=== PATIENT | male | born 1935 | race Caucasian/White ===

== ENCOUNTER 2022-06-19 10:56 | Emergency (ER) | payer MEDICARE, OTHER ==
[2022-06-19 11:56] LABS: #Monocytes 0.7 10x3/uL (0.0-1.1); #Neutrophils 9.8 10x3/uL (1.5-8.4); %Basophils 0.3 % (0.0-2.0); %Eosinophils 0.4 % (0.0-6.0); %Monocytes 6.3 % (0.0-10.0); %Neutrophils 88.3 % (40.0-75.0); Hemoglobin 13.8 g/dL (13.5-17.5); Mean Corpuscular HGB CONC 35.1 g/dL (32.0-36.0); Mean Corpuscular Hemoglobin 32.9 pg (27.0-33.0); Mean Corpuscular Volume 93.8 fl (81.2-95.1); Mean Platelet Volume 9.4 fl (7.4-10.4); Platelet Count 166 10x3/uL (150-450); RBC Distribution Width 13.2 % (11.5-14.5); Red Blood Cell (RBC) Count 4.19 10x6/uL (4.32-5.72); White Blood Cell (WBC) Count 11.1 10x3/uL (3.5-10.5)
[2022-06-19] MEDS ORDERED: Morphine 4 MG/ML VIAL ONE ×2 (11:59→17:09)
[2022-06-19 12:19] LABS: ALT (SGPT) 21 U/L (8-55); AST (SGOT) 29 U/L (5-34); Albumin 3.4 g/dL (3.4-4.8); Alkaline Phosphatase 161 U/L (40-110); Anion Gap 17 mmol/L (10-20); BUN (Urea Nitrogen) 35 mg/dL (8.4-25.7); Bilirubin, Total 1.3 mg/dL (0.2-1.2); Calc. Creatinine Clearance 0 mL/min (70-130); Calcium 8.6 mg/dL (7.8-10.44); Carbon Dioxide 18 mmol/L (23-31); Chloride 104 mmol/L (98-107); Estimated GFR 47; Glucose 107 mg/dL (83-110); Protein, Total 6.4 g/dL (5.8-8.1); Sodium 135 mmol/L (136-145)
[2022-06-19 13:33] LABS: Bilirubin Neg (Negative); Blood, Urine 10 (Negative); Clarity Clear (Clear); Glucose, Urine (Dipstick) Normal (Negative); Ketone, Urine 5 mg/dL (Negative); Leukocyte Negative (Negative); Nitrite Negative (Negative); Protein, Urine (Dipstick) 30 mg/dl (Neg-Trace)
[2022-06-19 13:56] LABS: Bacteria/HPF Rare-Few HPF (None Seen); Epithelial Cast 0-3 LPF (None Seen); Mucous/LPF 1+ LPF (<2+); Squamous Epithelial 0-3 HPF (0-3); WBC/HPF 0-3 HPF (0-3)
== END 2022-06-19 20:30 ==
LOC: CSHERS 10:56
DX: M54.50 Low back pain, unspecified (principal); R53.1 Weakness
CPT/HCPCS: 36415; 72128; 72131; 80053; 81003; 81015; 85025; 93005; 96374; 96376; J2270

== ENCOUNTER 2022-07-10 13:13 | Inpatient (IN) | payer OTHER ==
[2022-07-10 15:17] LABS: PTT 29.9 sec (22.0-33.0)
[2022-07-10 15:18] LABS: ALT (SGPT) 16 U/L (8-55); AST (SGOT) 28 U/L (5-34); Albumin 3.4 g/dL (3.4-4.8); Alkaline Phosphatase 331 U/L (40-110); Anion Gap 17 mmol/L (10-20); BUN (Urea Nitrogen) 19 mg/dL (8.4-25.7); Bilirubin, Total 0.5 mg/dL (0.2-1.2); Calc. Creatinine Clearance 0 mL/min (70-130); Calcium 8.2 mg/dL (7.8-10.44); Carbon Dioxide 22 mmol/L (23-31); Chloride 102 mmol/L (98-107); Estimated GFR 62; Globulin 2.6 g/dL (2.4-3.5); Glucose 94 mg/dL (83-110); Potassium 3.5 mmol/L (3.5-5.1); Sodium 137 mmol/L (136-145)
[2022-07-10 15:29] LABS: #Eosinphils 0.1 10x3/uL (0.0-0.5); #Monocytes 0.5 10x3/uL (0.0-1.1); #Neutrophils 5.3 10x3/uL (1.5-8.4); %Basophils 0.4 % (0.0-2.0); %Eosinophils 1.6 % (0.0-6.0); %Lymphocytes 11.2 % (18.0-47.0); %Monocytes 7.7 % (0.0-10.0); %Neutrophils 78.7 % (40.0-75.0); Mean Corpuscular HGB CONC 34.4 g/dL (32.0-36.0); Mean Corpuscular Hemoglobin 32.4 pg (27.0-33.0); Mean Corpuscular Volume 94.2 fl (81.2-95.1); Mean Platelet Volume 8.7 fl (7.4-10.4); Platelet Count 244 10x3/uL (150-450); RBC Distribution Width 13.4 % (11.5-14.5); Red Blood Cell (RBC) Count 4.32 10x6/uL (4.32-5.72); White Blood Cell (WBC) Count 6.7 10x3/uL (3.5-10.5)
[2022-07-10] MEDS ORDERED: Guaifenesin DM 100-10/5 ML UDCUP PO PRN (18:46)
[2022-07-10] MEDS ORDERED: Acetaminophen 325 MG TAB PO PRN (18:46)
[2022-07-10] MEDS ORDERED: Ondansetron PF 4 MG/2 ML Vial IVP PRN (18:46)
[2022-07-10] MEDS ORDERED: Ondansetron ODT 4 MG TAB PO PRN (18:46)
[2022-07-10] MEDS ORDERED: Senokot S 8.6-50 MG TAB PO PRN (18:46)
[2022-07-10] MEDS ORDERED: Acetaminophen 650 MG Suppository PR PRN (18:46)
[2022-07-10] MEDS ORDERED: PHENYTOIN 30 MG PO SCH (21:00)
[2022-07-10] MEDS ORDERED: Phenytoin Extended Release 100 MG CAP PO SCH (21:00)
[2022-07-10] MEDS: Atorvastatin Calcium 40 MG TAB PO SCH (21:48)
[2022-07-10] MEDS: Famotidine 20 MG TAB PO SCH (21:49)
[2022-07-11 04:51] LABS: Anion Gap 11 mmol/L (10-20); BUN (Urea Nitrogen) 19 mg/dL (8.4-25.7); Calc. Creatinine Clearance 57 mL/min (70-130); Calcium 8.3 mg/dL (7.8-10.44); Carbon Dioxide 25 mmol/L (23-31); Chloride 104 mmol/L (98-107); Estimated GFR 67; Glucose 95 mg/dL (83-110); Potassium 3.2 mmol/L (3.5-5.1); Sodium 137 mmol/L (136-145)
[2022-07-11 04:56] LABS: #Basophils 0.1 10x3/uL (0.0-0.2); #Eosinphils 0.2 10x3/uL (0.0-0.5); #Monocytes 0.6 10x3/uL (0.0-1.1); #Neutrophils 4.6 10x3/uL (1.5-8.4); %Basophils 0.8 % (0.0-2.0); %Eosinophils 3.1 % (0.0-6.0); %Lymphocytes 16.2 % (18.0-47.0); %Monocytes 9.8 % (0.0-10.0); %Neutrophils 69.8 % (40.0-75.0); Hemoglobin 13.1 g/dL (13.5-17.5); Mean Corpuscular HGB CONC 34.3 g/dL (32.0-36.0); Mean Corpuscular Hemoglobin 32.8 pg (27.0-33.0); Mean Corpuscular Volume 95.7 fl (81.2-95.1); Mean Platelet Volume 8.8 fl (7.4-10.4); Platelet Count 229 10x3/uL (150-450); RBC Distribution Width 13.4 % (11.5-14.5); Red Blood Cell (RBC) Count 3.99 10x6/uL (4.32-5.72); White Blood Cell (WBC) Count 6.6 10x3/uL (3.5-10.5)
[2022-07-11] MEDS ORDERED: Potassium Chloride 20 MEQ TAB PO SCH (07:45)
[2022-07-11] MEDS: Clopidogrel Bisulfate 75 MG TAB PO SCH (08:27)
[2022-07-11] MEDS: Famotidine 20 MG TAB PO SCH ×2 (08:27→21:31)
[2022-07-11] MEDS: Lisinopril 10 MG TAB PO SCH (21:30)
[2022-07-11] MEDS: Phenytoin Extended Release 100 MG CAP PO SCH (21:31)
[2022-07-11] MEDS: Latanoprost 0.005% Ophth Soln 2.5 ml Bottle EA EYE SCH (21:31)
[2022-07-11] MEDS: Atorvastatin Calcium 40 MG TAB PO SCH (21:31)
[2022-07-11] MEDS: Dorzolamide HCl 2% Ophth Soln 10 ml Bottle EA EYE SCH (21:31)
[2022-07-12 03:50] LABS: Anion Gap 12 mmol/L (10-20); BUN (Urea Nitrogen) 18 mg/dL (8.4-25.7); Calc. Creatinine Clearance 63 mL/min (70-130); Calcium 8.5 mg/dL (7.8-10.44); Carbon Dioxide 24 mmol/L (23-31); Chloride 105 mmol/L (98-107); Estimated GFR 76; Glucose 103 mg/dL (83-110); Potassium 3.6 mmol/L (3.5-5.1); Sodium 137 mmol/L (136-145)
[2022-07-12] MEDS: Famotidine 20 MG TAB PO SCH ×2 (09:44→21:50)
[2022-07-12] MEDS: Clopidogrel Bisulfate 75 MG TAB PO SCH (09:45)
[2022-07-12] MEDS: Dorzolamide HCl 2% Ophth Soln 10 ml Bottle EA EYE SCH ×2 (09:45→21:49)
[2022-07-12] MEDS: Multivitamin W/ Minerals 1 TAB PO SCH (09:45)
[2022-07-12] MEDS: Latanoprost 0.005% Ophth Soln 2.5 ml Bottle EA EYE SCH (21:49)
[2022-07-12] MEDS: Atorvastatin Calcium 40 MG TAB PO SCH (21:50)
[2022-07-12] MEDS: Phenytoin Extended Release 100 MG CAP PO SCH (21:50)
[2022-07-12] MEDS: Lisinopril 10 MG TAB PO SCH (21:50)
[2022-07-13] MEDS: Clopidogrel Bisulfate 75 MG TAB PO SCH (08:06)
[2022-07-13] MEDS: Dorzolamide HCl 2% Ophth Soln 10 ml Bottle EA EYE SCH ×2 (08:06→21:05)
[2022-07-13] MEDS: Multivitamin W/ Minerals 1 TAB PO SCH (08:13)
[2022-07-13] MEDS: Famotidine 20 MG TAB PO SCH ×2 (08:13→21:06)
[2022-07-13] MEDS: Latanoprost 0.005% Ophth Soln 2.5 ml Bottle EA EYE SCH (21:05)
[2022-07-13] MEDS: Atorvastatin Calcium 40 MG TAB PO SCH (21:06)
[2022-07-13] MEDS: Lisinopril 10 MG TAB PO SCH (21:07)
[2022-07-13] MEDS: Phenytoin Extended Release 100 MG CAP PO SCH (21:07)
[2022-07-14] MEDS: Dorzolamide HCl 2% Ophth Soln 10 ml Bottle EA EYE SCH ×2 (09:44→20:45)
[2022-07-14] MEDS: Famotidine 20 MG TAB PO SCH ×2 (09:44→22:49)
[2022-07-14] MEDS: Multivitamin W/ Minerals 1 TAB PO SCH (09:44)
[2022-07-14] MEDS: Clopidogrel Bisulfate 75 MG TAB PO SCH (09:44)
[2022-07-14] MEDS: Atorvastatin Calcium 40 MG TAB PO SCH (20:44)
[2022-07-14] MEDS: Phenytoin Extended Release 100 MG CAP PO SCH (20:44)
[2022-07-14] MEDS: Lisinopril 10 MG TAB PO SCH (20:44)
[2022-07-14] MEDS: Latanoprost 0.005% Ophth Soln 2.5 ml Bottle EA EYE SCH (20:45)
[2022-07-15] MEDS: cloNIDine 0.1 MG TAB PO PRN (08:30)
[2022-07-15] MEDS: Multivitamin W/ Minerals 1 TAB PO SCH (08:30)
[2022-07-15] MEDS: Dorzolamide HCl 2% Ophth Soln 10 ml Bottle EA EYE SCH ×2 (08:30→23:12)
[2022-07-15] MEDS: Clopidogrel Bisulfate 75 MG TAB PO SCH (08:30)
[2022-07-15] MEDS: Famotidine 20 MG TAB PO SCH ×2 (08:30→23:12)
[2022-07-15 11:57] VITALS: BMI 26.3
[2022-07-15] MEDS: Lisinopril 10 MG TAB PO SCH (23:11)
[2022-07-15] MEDS: Phenytoin Extended Release 100 MG CAP PO SCH (23:11)
[2022-07-15] MEDS: Atorvastatin Calcium 40 MG TAB PO SCH (23:11)
[2022-07-15] MEDS: Latanoprost 0.005% Ophth Soln 2.5 ml Bottle EA EYE SCH (23:12)
[2022-07-16] MEDS: cloNIDine 0.1 MG TAB PO PRN (08:40)
[2022-07-16] MEDS: Famotidine 20 MG TAB PO SCH ×3 (08:40→20:51)
[2022-07-16] MEDS: Clopidogrel Bisulfate 75 MG TAB PO SCH (08:40)
[2022-07-16] MEDS: Dorzolamide HCl 2% Ophth Soln 10 ml Bottle EA EYE SCH ×2 (08:40→20:48)
[2022-07-16] MEDS: Multivitamin W/ Minerals 1 TAB PO SCH (08:40)
[2022-07-16] MEDS: Atorvastatin Calcium 40 MG TAB PO SCH (20:42)
[2022-07-16] MEDS: Lisinopril 10 MG TAB PO SCH (20:42)
[2022-07-16] MEDS: Phenytoin Extended Release 100 MG CAP PO SCH (20:42)
[2022-07-16] MEDS: Latanoprost 0.005% Ophth Soln 2.5 ml Bottle EA EYE SCH (20:48)
[2022-07-17] MEDS: Clopidogrel Bisulfate 75 MG TAB PO SCH (09:23)
[2022-07-17] MEDS: Famotidine 20 MG TAB PO SCH (09:25)
[2022-07-17] MEDS: Multivitamin W/ Minerals 1 TAB PO SCH (09:26)
[2022-07-17] MEDS: Dorzolamide HCl 2% Ophth Soln 10 ml Bottle EA EYE SCH (09:39)
[2022-07-17 12:17] VITALS: TEMP 97.5
[2022-07-17 12:32] VITALS: BP 138/79
== END 2022-07-17 16:06 | DRG 57 ==
LOC: CSHERS 13:13 → INTOOBSV 19:34 → CSHTELE 19:34 → OBSVTOIN 07-12 07:02
PROVIDERS: ADMIT Family Medicine; ATTEND Family Medicine
DX: I69.398 Other sequelae of cerebral infarction (principal); M48.8X6 Other specified spondylopathies, lumbar region; R26.89 Other abnormalities of gait and mobility; I10 Essential (primary) hypertension; E78.5 Hyperlipidemia, unspecified; G40.909 Epilepsy, unspecified, not intractable, without status epilepticus; F17.210 Nicotine dependence, cigarettes, uncomplicated; Z66 Do not resuscitate; R53.1 Weakness; Z91.81 History of falling; Z90.49 Acquired absence of other specified parts of digestive tract; Z98.890 Other specified postprocedural states; Z79.899 Other long term (current) drug therapy
CPT/HCPCS: 36415; 70450; 71045; 80048; 80053; 84484; 85025; 85610; 85730; 93005; 94760; 94762; 96372; G0378; J1650; J2405